=== PATIENT | male | born 1955 | race Two or more races ===

== ENCOUNTER 2022-03-03 16:57 | Emergency (ER) | payer OTHER ==
[~2022-03-03] VITALS: Ht 177.8 cm; Wt 113.4 kg
--- NOTE | 2022-03-03 17:45 | NUR ---
[facility] C/O RIGHT LEG PAIN/SWELLING AND REDNESS X 1 WEEK
--- NOTE | 2022-03-03 18:20 | NUR ---
[employer]ACHINE [employer] WORK[employer] AT BEDSIDE FOR BLOOD DRAW
[2022-03-03 18:44] LABS: CALCIUM, SERUM 9.4 mg/dL (8.5-10.1); CREATININE 1.3 mg/dL (0.6-1.3); POTASSIUM 3.9 mmol/L (3.5-5.1)
[2022-03-03 20:00] LABS: BASOPHILS % (AUTO) 0.5 % (0.0-2.0); EOSINOPHILS % (AUTO) 3.1 % (0.0-6.0); HEMATOCRIT 45 % (39-51); HEMOGLOBIN 15.3 g/dL (13.5-17.5); LYMPHOCYTES # (AUTO) 2.3 K/uL (0.8-4.8); LYMPHOCYTES % (AUTO) 28.9 % (20.0-44.0); MEAN CORPUSCULAR HGB CONC 34 g/dl (31.0-36.0); MEAN CORPUSCULAR VOLUME 98 fL (80-96); MONOCYTES # (AUTO) 0.7 K/uL (0.1-1.30); MONOCYTES % (AUTO) 9.2 % (2.0-12.0); NEUTROPHILS # (AUTO) 4.7 K/uL (1.8-8.9); NEUTROPHILS % (AUTO) 58.3 % (43.0-81.0); PLATELET COUNT (AUTO) 225 K/uL (150-450); RED BLOOD CELL COUNT(AUTO) 4.55 MIL/uL (4.5-6.0); WHITE BLOOD COUNT (AUTO) 8.1 K/uL (4.3-11.0)
[2022-03-03] MEDS ORDERED: CEPH500C2 PO (20:13)
[2022-03-03] MEDS ORDERED: AMLO10TA4 PO (20:13)
--- NOTE | 2022-03-03 20:45 | NUR ---
[facility] CALLED FOR BLS BACK TO [facility] PER BLANCA KAUR 90 MIN
--- NOTE | 2022-03-03 23:48 | NUR ---
[facility] UNIT 350 AT BEDSIDE FOR PT TRANSPORT TO BACK TO HIS FACILITY
[2022-03-04 01:35] VITALS: BP 168/90
== END 2022-03-03 23:50 | disposition home or self-care (01) ==
LOC: ER 17:01
DX: L03.115 Cellulitis of right lower limb (principal); I10 Essential (primary) hypertension
CPT/HCPCS: 36415; 73630-TC; 80048-TC; 85025-TC